=== PATIENT | male | born 1985 | race Caucasian/White ===

== ENCOUNTER 2021-10-02 12:17 | Emergency (ER) | payer OTHER, SELFPAY ==
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
[2021-10-02 12:27] VITALS: BP 149/102; PULSE 106; RESP 14; TEMP 37.3; O2SAT 98
== END 2021-10-02 12:45 | disposition home or self-care (01) ==
PROVIDERS: Emergency Provider Nurse Practitioner Family
DX: S43.005D Unspecified dislocation of left shoulder joint, subsequent encounter (principal); V89.2XXD Person injured in unspecified motor-vehicle accident, traffic, subsequent encounter; M25.512 Pain in left shoulder; W22.10XD Striking against or struck by unspecified automobile airbag, subsequent encounter
CPT/HCPCS: 99212; G0463